=== PATIENT | female | born 1990 | race African-American/Black ===

== ENCOUNTER 2020-12-11 00:31 | Inpatient (IN) ==
[2020-12-11] MEDS ORDERED: CITRIC ACID/SODIUM CITRATE 30 ML UDCUP ONE (00:55)
[2020-12-11] MEDS ORDERED: FAMOTIDINE 20 MG/2 ML VIAL IV ONE ×2 (00:56→00:57)
[2020-12-11] MEDS ORDERED: OXYTOCIN 10 UNIT/ML VIAL ONE (00:56)
[2020-12-11] MEDS ORDERED: ceFAZolin 2,000 MG/50 ML DUPLEX IV ONE (00:57)
[2020-12-11] MEDS ORDERED: CITRIC ACID/SODIUM CITRATE 30 ML UDCUP PO ONE (00:57)
[2020-12-11] MEDS: LACTATED RINGERS 1,000 ML IV SCH ×2 (01:00→05:47)
[2020-12-11] MEDS ORDERED: LACTATED RINGERS 1,000 ML IV SCH (01:00)
[2020-12-11 01:14] LABS: Basophils % 0.2 % (0.0-0.8); Eosinophils # 0.1 10*3/uL (0.0-0.87); Eosinophils % 0.7 % (0.00-10.9); Hematocrit 32.9 VOL% (35.7-47.0); Hemoglobin 11.3 GM/DL (12.0-16.0); Immature Granulocytes % 0.7 %; Immature Granulocytes Absolute 0.12 #; Lymphocytes # 5.8 10*3/uL (1.4-4.0); Lymphocytes % 35.7 % (21.3-54.2); Mean Corpuscular HGB Conc 34.3 GM/DL (32-36); Mean Corpuscular Volume 92.7 FL (87-102); Mean Platelet Volume 12.5 FL (9.6-12.0); Monocytes % 4.7 % (1.7-12.7); Platelet Count 127 T/CUMM (130-400); Red Blood Count 3.55 MC/CUMM (3.8-5.5); Red Cell Distribution Width 12.4 % (9.3-17.3); White Blood Count 16.4 T/CUMM (4-12)
[2020-12-11] MEDS ORDERED: SODIUM CHLORIDE 0.9% 1,000 ML IV PRN ×3 (01:16→07:00)
[2020-12-11] MEDS ORDERED: propofoL 200 MG/20 ML VIAL IV ONE (01:25)
[2020-12-11] MEDS ORDERED: SUCCINYLCHOLINE 200 MG/10 ML VIAL ONE (01:25)
[2020-12-11] MEDS ORDERED: MIDAZOLAM 2 MG/2 ML VIAL ONE (01:31)
[2020-12-11] MEDS ORDERED: fentaNYL 250 MCG/5 ML VIAL ONE (01:31)
[2020-12-11 01:34] LABS: Albumin 2.8 G/DL (3.4-5.0); Bilirubin,Total 0.6 MG/DL (0.20-1.00); Calcium 8.9 MG/DL (8.5-10.1); Osmolality,Calculated 281.4 MOS/KG (273-304); Potassium 3.3 MMOL/L (3.5-5.1); Total Protein 6.9 G/DL (6.4-8.2)
[2020-12-11] MEDS ORDERED: OXYTOCIN/LR 20 UNIT/1,000 ML BAG IV ONE ×2 (02:01→02:50)
[2020-12-11] MEDS ORDERED: CALCIUM CHLORIDE 1,000 MG/10 ML VIAL IV ONE (02:05)
[2020-12-11] MEDS ORDERED: LACTATED RINGERS 1,000 ML IV ONE (02:05)
[2020-12-11] MEDS ORDERED: ONDANSETRON 4 MG/2 ML VIAL ONE (02:05)
[2020-12-11] MEDS ORDERED: DEXAMETHASONE 4 MG/1 ML VIAL ONE (02:05)
[2020-12-11] MEDS ORDERED: SEVOFLURANE 1 UNIT/15 MINUTE INH ONE (02:05)
[2020-12-11] MEDS ORDERED: GLYCOPYRROLATE 0.4 MG/2 ML VIAL ONE (02:05)
[2020-12-11] MEDS ORDERED: NEOSTIGMINE 10 MG/10 ML VIAL ONE (02:06)
[2020-12-11] MEDS: HYDROmorphone 2 MG/1 ML VIAL IV PRN ×2 (02:28→05:47)
[2020-12-11] MEDS ORDERED: LABETALOL 20 MG/4 ML SYRINGE IV ONE (02:37)
[2020-12-11] MEDS ORDERED: ROCURONIUM 50 MG/5 ML VIAL IV ONE (02:37)
[2020-12-11 02:46] LABS: Bacteria,Urine Occasional /HPF (Few); Bilirubin,Urine Negative (Negative); Blood, Urine Negative (Negative); Glucose,Urine (UA) 50 mg/dL (Negative); Ketones,Urine Negative (Negative); Mucus,Urine Many /LPF (Occasional); Nitrite,Urine Negative (Negative); Protein,Urine >=500 MG/DL; RBC,Urine 9 /HPF (0-4); Squamous Epithelial Cell,Urine Few /HPF (0-10); Urine Appearance CLOUDY (Clear); Urine Color Amber (Yellow); Urine Specific Gravity 1.029 (1.001-1.035); Urine Urobilinogen < 2.0 EU/DL (0.2-1.0)
[2020-12-11] MEDS ORDERED: IBUPROFEN 800 MG TABLET PO PRN (02:50)
[2020-12-11] MEDS ORDERED: RHO(D) IMMUNE GLOBULIN 300 MCG SYRINGE IM ONE (02:50)
[2020-12-11] MEDS ORDERED: ONDANSETRON 4 MG/2 ML VIAL IV PRN (02:50)
[2020-12-11] MEDS ORDERED: ACETAMINOPHEN 325 MG TABLET PO PRN (02:50)
[2020-12-11 03:29] LABS: Hypochromasia 1+; Platelet Estimate Normal
[2020-12-11 03:30] LABS: Atypical Lymphocytes Few; Reactive Lymphocytes 2+
[2020-12-11 03:38] LABS: Barbiturates Screen,Urine Negative (Negative); Benzodiazepines Screen,Urine Positive (Negative); Cannabinoid Screen,Urine Positive (Negative); Opiate Screen,Urine Negative (Negative); Phencyclidine Screen,Urine Negative (Negative)
[2020-12-11 05:18] LABS: Basophils % 0.1 % (0.0-0.8); Hematocrit 30.8 VOL% (35.7-47.0); Hemoglobin 10.7 GM/DL (12.0-16.0); Immature Granulocytes % 0.9 %; Lymphocytes % 4.4 % (21.3-54.2); Mean Corpuscular HGB Conc 34.7 GM/DL (32-36); Mean Corpuscular Volume 90.1 FL (87-102); Mean Platelet Volume 12.1 FL (9.6-12.0); Monocytes % 2.1 % (1.7-12.7); Neutrophils % 92.5 % (38.7-73.9); Red Blood Count 3.42 MC/CUMM (3.8-5.5); Red Cell Distribution Width 13.1 % (9.3-17.3)
[2020-12-11 05:33] LABS: White Blood Count 22.9 T/CUMM (4-12)
[2020-12-11 05:36] LABS: Platelet Count 76 T/CUMM (130-400)
[2020-12-11 05:40] LABS: Band Neutrophils 2 % (0-10); Hypochromasia Slight; Lymphocytes 3 % (20-55); Microcytosis 1+; Platelet Estimate Decreased; Segmented Neutrophils 94 % (50-85); Total Cells Counted 100
[2020-12-11] MEDS: POTASSIUM CHLORIDE 20 MEQ TABLET PO PRN ×3 (08:03→11:34)
[2020-12-11] MEDS: DOCUSATE SODIUM 100 MG CAPSULE PO SCH ×2 (08:03→20:41)
[2020-12-11] MEDS: MULTIVITAMIN (PRENATAL) TABLET PO SCH (08:04)
[2020-12-11] MEDS ORDERED: diphenhydrAMINE CAP 25 MG CAPSULE PO PRN (11:12)
[2020-12-11 18:32] LABS: Basophils % 0.1 % (0.0-0.8); Hematocrit 26.4 VOL% (35.7-47.0); Hemoglobin 9.1 GM/DL (12.0-16.0); Immature Granulocytes % 0.8 %; Immature Granulocytes Absolute 0.14 #; Lymphocytes # 1.8 10*3/uL (1.4-4.0); Mean Corpuscular HGB Conc 34.5 GM/DL (32-36); Mean Corpuscular Volume 90.1 FL (87-102); Mean Platelet Volume 12.5 FL (9.6-12.0); Neutrophils % 85.1 % (38.7-73.9); Platelet Count 107 T/CUMM (130-400); Red Blood Count 2.93 MC/CUMM (3.8-5.5); Red Cell Distribution Width 13.3 % (9.3-17.3)
[2020-12-11] MEDS: oxyCODONE/ACETAMINOPHEN 5-325 MG TABLET PO PRN (20:41)
[2020-12-11] MEDS: METOCLOPRAMIDE 10 MG TABLET PO SCH (23:22)
[2020-12-12] MEDS: oxyCODONE/ACETAMINOPHEN 5-325 MG TABLET PO PRN ×2 (05:54→16:23)
[2020-12-12] MEDS: SIMETHICONE CHEW 80 MG TABLET PO PRN (08:03)
[2020-12-12] MEDS: METOCLOPRAMIDE 10 MG TABLET PO SCH ×2 (08:03→16:20)
[2020-12-12] MEDS: MAGNESIUM HYDROXIDE SUSP 30 ML UDCUP PO PRN ×2 (08:03→20:39)
[2020-12-12] MEDS: MULTIVITAMIN (PRENATAL) TABLET PO SCH (08:04)
[2020-12-12] MEDS: DOCUSATE SODIUM 100 MG CAPSULE PO SCH ×2 (08:04→20:39)
[2020-12-12] MEDS: FERROUS SULFATE 325 MG TABLET PO SCH (08:04)
[2020-12-13] MEDS: oxyCODONE/ACETAMINOPHEN 5-325 MG TABLET PO PRN ×2 (00:58→08:36)
[2020-12-13] MEDS: METOCLOPRAMIDE 10 MG TABLET PO SCH ×2 (00:58→08:34)
[2020-12-13] MEDS: DOCUSATE SODIUM 100 MG CAPSULE PO SCH (08:34)
[2020-12-13] MEDS: SIMETHICONE CHEW 80 MG TABLET PO PRN (08:34)
[2020-12-13] MEDS: FERROUS SULFATE 325 MG TABLET PO SCH (08:34)
[2020-12-13] MEDS: MULTIVITAMIN (PRENATAL) TABLET PO SCH (08:34)
[2020-12-13 09:26] VITALS: BP 127/69
== END 2020-12-13 10:30 | disposition home or self-care (01) | DRG 540 ==
LOC: N.LDOUT 00:31 → N.LD 00:35 → N.OB 05:50
PROVIDERS: ADMIT Obstetrics & Gynecology; ATTEND Obstetrics & Gynecology
PROC: LDCSECT (ICD-10-PCS; 2020-12-11 01:00)